=== PATIENT | female | born 1945 | race Caucasian/White ===

== ENCOUNTER → 2017-01-05 | Outpatient (CLI) | payer MEDICARE, OTHER ==
[2014-08-17 22:01] VITALS: BP 109/57
[~2017-01-05] MED LIST: CALC-67 PO; CIDE300T PO; CRESTOR20 MG PO; CRESTOR5 MG PO; CYCL10TA2 PO; DEXL60CA PO; FERR-26 PO; HYDR-2666 PO; LEVO5TAB2 PO; LORA10TA3 PO; MECL12.52 PO; MELO15TA6 PO; METO25TA9 PO; METO50TA10 PO; MULT-658 PO; OMEG500C3 PO; SPIR25TA PO; TRAM50TA PO
[2017-01-05 09:26] LABS: BASO # 0.1 x10^3/uL (0.0-0.2); BASO % 1 % (0-3); EOS % 3 % (0-3); HEMATOCRIT 38.9 % (36.0-47.0); HEMOGLOBIN 13.1 g/dL (12.0-15.5); LYMPH # 1.8 x10^3/uL (1.0-4.8); LYMPH % 25 % (24-48); MEAN CORPUSCULAR HEMOGLOBIN 30 pg (25-35); MEAN CORPUSCULAR HGB CONC 34 g/dL (31-37); MEAN CORPUSCULAR VOLUME 88 fL (79-100); MONO % 10 % (0-9); NEUT % 62 % (31-73); PLATELET COUNT 250 x10^3/uL (140-400); RED BLOOD COUNT 4.41 x10^6/uL (3.50-5.40); RED CELL DISTRIBUTION WIDTH 14.3 % (11.5-14.5); WHITE BLOOD COUNT 7.1 x10^3/uL (4.0-11.0)
[2017-01-05 09:35] LABS: PROTHROMBIN TIME PATIENT 12.8 SEC (11.7-14.0)
[2017-01-05 09:50] LABS: ALBUMIN 4.1 g/dL (3.4-5.0); CREATININE 1.4 mg/dL (0.6-1.0); GFR 37.2; POTASSIUM 4.1 mmol/L (3.5-5.1)
[2017-01-05 10:32] LABS: BILIRUBIN,URINE NEGATIVE (NEG); GLUCOSE,URINE NEGATIVE (NEG); NITRITE,URINE NEGATIVE (NEG); PH,URINE 5.5; PROTEIN,URINE NEGATIVE (NEG-TRACE); UROBILINOGEN,URINE 0.2 mg/dL (0.2 mg/dL)
[2017-01-05 10:46] LABS: BACTERIA,URINE FEW /HPF (0-FEW); RBC,URINE OCC /HPF (0-2); SQUAMOUS EPITHELIAL CELL,UR FEW /LPF; WBC,URINE OCC /HPF (0-4)
--- NOTE | 2017-01-05 12:14 | EKG ---
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
--- NOTE | 2017-01-05 15:11 | RAD ---
Chest, 2 views, 01/05/2017: History: Preop evaluation for knee surgery There is a severe thoracolumbar scoliosis. The heart size and pulmonary vascularity are normal. No pulmonary infiltrates are seen. There is no evidence of pleural fluid. Surgical implants are noted in the lumbar spine. IMPRESSION: 1. Severe scoliosis. 2. No acute cardiopulmonary abnormality is detected.
== END | disposition home or self-care (01) ==
LOC: SURGPAT 14:30
PROVIDERS: ATTEND Orthopaedic Surgery
DX: Z01.818 Encounter for other preprocedural examination (principal); M41.85 Other forms of scoliosis, thoracolumbar region; I10 Essential (primary) hypertension
CPT/HCPCS: 36415; 71020; 80048; 81001; 82040; 85027; 85610; 85651; 85730; 87641; 93005

== ENCOUNTER 2017-01-27 10:04 | Inpatient (IN) | payer MEDICARE, OTHER ==
--- NOTE | 2017-01-26 17:02 | PDOC1 ---
History and Physical Date of Admission Date of Admission DATE: 01/27/17 Identification/Chief Complaint Chief Complaint right knee osteoarthritis pain Source Source: Chart review History of Present Illness History of Present Illness Elizabeth is here today with her for a recheck on her right knee after an 80mg depomedrol injection done in the office on 10/30/2016 and referral for formal physical therapy. She states that her knee is still doing good and she doesn't feel like she needs another injection today. She denies any medication changes since her last office visit. She is quite a bit stronger than she was in her gait is improved however. She still has a very abnormal gait and uses a walker. Her therapist feels like she could wear to walk normally if she had a knee replacement. Currently the right knee instability seems to be the main problem, and despite raising her knee still feels unstable like it wants to hyperextend and go into valgus. Her says she has "lost her confidence to walk". She uses a walker most of the time, sometimes not in the house for she we'll just hold on to the old. We talked for a long time about the risks, benefits of the replacement surgery. She also has had back surgery, with a lumbar fusion and did have a dropfoot on the right side for some time but feels like that has resolved. She needed an AFO brace previously, but no longer uses it. Despite her pathologic gait, the therapist could not find any distinct motor weakness, and thought perhaps she has some hip issues. She also reports sensitivity to many metals, and has difficulty wearing certain jewelry, unless it is "pure" silver or gold. She reports nickel sensitivity. Her back has been stable, and she gets yearly rechecks with x-rays for Dr. Lorenzana. She did have epidural steroid injection a month ago and recent lumbar spine MRI. Past Medical History Cardiovascular: No pertinent hx, HTN, Hyperlipidemia Pulmonary: No pertinent hx GI: Diverticulosis, GERD, Other Heme/Onc: No pertinent hx Hepatobiliary: No pertinent hx Psych: No pertinent hx, Anxiety Infectious disease: No pertinent hx Renal/: No pertinent hx Endocrine: No pertinent hx Past Surgical History Past Surgical History back fusion surgery (Dr. Bellamy) - 09/2010 Past Surgical History: Cholecystectomy Family History Family History: Cancer, Heart Disease, Hypertension, Stroke Social History Smoke: No ALCOHOL: none Drugs: None Current Medications Current Medications Current Medications Ondansetron HCl (Zofran) 4 mg PRN Q6HRS PRN IV Nausea; Start 01/27/17 at 07:00 ; Stop 01/27/17 at 18:00 Fentanyl Citrate (Fentanyl 2ml Vial) 25 mcg PRN Q5MIN PRN IV MILD PAIN; Start 01/27/17 at 07:00; Stop 01/27/17 at 18:00 Fentanyl Citrate (Fentanyl 2ml Vial) 50 mcg PRN Q5MIN PRN IV MODERATE PAIN; Start 01/27/17 at 07:00; Stop 01/27/17 at 18:00 Morphine Sulfate 1 mg 1 mg PRN Q10MIN PRN IV SEVERE PAIN; Start 01/27/17 at 07: 00; Stop 01/27/17 at 18:00 Lactated Ringer's (Iv Lactated Ringers) 1,000 ml @ 30 mls/hr Q24H IV ; Start at 07:00; Stop 01/27/17 at 18:59 Lidocaine HCl 2 ml 1X PRN PRN ID IV START; Start 01/27/17 at 07:00; Stop at 18:00 Hydromorphone HCl (Dilaudid) 0.5 mg PRN Q10MIN PRN IV SEVERE PAIN, Second choice; Start 01/27/17 at 07:00; Stop 01/27/17 at 18:00 Prochlorperazine Edisylate 5 mg 5 mg PACU PRN PRN IV NAUSEA; Start 01/27/17 at 07:00; Stop 01/27/17 at 18:00 Morphine Sulfate/ Ketorolac Tromethamine/ Ropivacaine/ Epinephrine HCl/ Sodium Chloride (Morphine 5mg Syringe/Toradol/ Naropin 0.5%/ Adrenalin/Iv Sodium Chloride 0.9% 100ml) 100.5 ml @ 100.5 mls/ hr 1X PERIOP ONCE INT ART ; Start 01/27/17 at 06:00; Stop 01/27/17 at 06:59 Active Scripts Active Reported Tramadol Hcl 50 Mg Tablet 50 Mg PO Q6H PRN Dexilant (Dexlansoprazole) 60 Mg Cap.dr.mp 60 Mg PO DAILY Crestor (Rosuvastatin Calcium) 5 Mg Tablet 0.5 Tab PO QMWF Metoprolol Succinate 50 Mg Tab.er.24h 75 Mg PO DAILY Levocetirizine Dihydrochloride 5 Mg Tablet 1 Tab PO DAILY Ferrous Sulfate 325 Mg Tablet 1 Tab PO DAILY Hydrocodone-Apap 5-325 (Hydrocodone Bit/Acetaminophen) 1 Each Tablet 1 Tab PO PRN Q6HRS PRN Meclizine Hcl 12.5 Mg Tablet 12.5 Mg PO Apple Cider Vinegar (Cider Vinegar) 300 Mg Tablet 300 Mg PO DAILY Cyclobenzaprine Hcl 10 Mg Tablet 10 Mg PO DAILY Loratadine 10 Mg Tablet 10 Mg PO DAILY Mobic (Meloxicam) 15 Mg Tablet 15 Mg PO DAILY Aldactone (Spironolactone) 25 Mg Tablet 25 Mg PO DAILY Fish Oil (Lena-3 Fatty Acids) 500 Mg Capsule 1,000 Mg PO DAILY Centrum Silver Tablet (Multivits-Min/Fa/Lycopene/Lut) 1 Each Tablet 1 Each PO DAILY Allergies Allergies: Coded Allergies: adhesive tape (Verified Allergy, Intermediate, Rash, 01/02/17) amoxicillin (Verified Allergy, Intermediate, Unknown, 01/02/17) Physical Exam General: Alert, Oriented X3, Cooperative, No acute distress HEENT: Atraumatic, EOMI Lungs: Normal air movement Heart: RRR Abdomen: Soft Extremities: No clubbing, No cyanosis, Normal pulses, Other (The RIGHT knee shows pathologic walker based gait despite using a hinged knee brace. She walks with the hyperextended and valgus until it reaches a natural endpoint, and then puts her weight on it. She still walks as if she has a drop foot, however, when I check her motor strength in the lower extremities, the strengths seemed normal and symmetric. I checked the motor strength in the right lower extremity including: great toe extension, foot dorsiflexion, foot plantar flexion, foot inversion, foot eversion, leg extension at the knee, flexion at the knee, hip flexion, hip extension, hip abduction, hip abduction, hip internal rotation, and hip external rotation. The strength on all of these seem normal 5/5. It is my impression that her abnormal gait is partly learned behavior from her prior drop foot, and partly related to the knee instability. The knee is unstable to valgus stress and to varus stress. There is valgus alignment. No masses. No detectable effusion. Tenderness on the joint lines. Range of motion is hyperextension 10 degrees to flexion 115 degrees. There is crepitus with range of motion, and pain at the extremes of motion. The skin is normal with no scars , rashes, lesions or ulcers. Light touch sensation is intact. No edema and no varicosities. Dorsalis pedis pulse is intact and capillary refill is normal. The LEFT knee shows mildly antalgic gait and hinged knee brace. There is valgus alignment. No masses. No detectable effusion. Tenderness on the joint lines. Range of motion is 0-115 degrees. There is crepitus with range of motion, and pain at the extremes of motion. The knee is stable to varus and valgus stress without subluxation or laxity. Muscle strength is normal (5/5) for quadriceps and hamstrings, and muscle tone is normal. The skin is normal with no scars, rashes, lesions or ulcers. Light touch sensation is intact. No edema and no varicosities. Dorsalis pedis pulse is intact and capillary refill is normal.) Skin: No rashes, No breakdown Neuro: Normal speech, Sensation intact Psych/Mental Status: Mental status NL, Mood NL Images Images IMAGING REPORT Joint survey, hips knees and ankles Clinical information: Preoperative for total knee arthroplasty Comparison: None. Findings Bones: [The angle between the right hip-ankle mechanical axis and the femoral shaft is 5. The mechanical axis crosses lateral to the center of the right knee, indicating valgus alignment. Due to the patient movement and stitching technique, left femur and tibiofemoral measurements are not possible to assess. Joints: There is narrowing of the right knee joint laterally with [id number] changes. The left knee joint shows mild to moderate degenerative changes. The hips and ankles show minimal degenerative changes. Soft tissue: Normal. Impression: Valgus alignment of the right knee. The difference between the mechanical axis and femoral shaft anatomic axis is 5 on the right. Dictated and Signed Using Voice Recognition Software Nathan Villegas MD VTE Prophylaxis Ordered VTE Prophylaxis Devices: Yes VTE Pharmacological Prophylaxi: Yes Assessment/Plan Assessment/Plan Dr. Villegas had a long discussion about her knee, her longevity, and her gait. Her mom lived until age 90, grandmother until 95. She has uncles who lived until 100 , and 98. Her father young of cardiac disease and diabetes. Her primary physician is Dr. Hennessy. She does not have a hip hop performers. She has had right knee problems since the 1970's, but they got much worse after the recent fall. She no longer is able to do day-to-day activities without using the walker brace and without significant immobility. We talked about the natural history of her knee disease, and that she will likely end up in a wheelchair without intervention. She may live for 20 or more years. We talked about the risks and benefits of total knee arthroplasty. She would need revision components. Due to the severe instability. I would plan a stem on the tibia, likely a stem on the femur, Oxinium femur due to the medical sensitivity, and stabilized tibiofemoral articulation such as a constrained condylar implant. We discussed risks such as infection, possible need for amputation, need for revision, rather significant risks in detail. She has a friend that had bilateral total knee arthroplasty. At [facility] and required revision for infection. We discussed the potential risks of infection, neurovascular injury, bleeding, blood clots, need for revision surgery, or other potential surgical or anesthetic complications. All of her questions about surgery were answered and she desires to proceed. She denies prior blood clots and will use aspirin postoperatively for DVT prophylaxis. DEVIN MAK Jan 26, 2017 17:02
[~2017-01-27] VITALS: Ht 157.5 cm; Wt 74.8 kg
[~2017-01-27 10:04] MED LIST changes: +CLINDAMYCIN 600MG PREMIX 50 ML IV PRN; +FENTANYL PF 100 MCG/2 ML VIAL. IV PRN; +HYDROCODONE/APAP 7.5/325MG TABLET. PO PRN; +HYDROMORPHONE 2 MG/ML VIAL. IV PRN; +LIDOCAINE 1% 1 ML SYRINGE. ID PRN; +MORPHINE SULFATE 5 MG, KETOROLAC TROMETHAMINE 30 MG, ROPIVacaine 0.5% PF 60 ML, EPINEPH... INT ART ONE; +ONDANSETRON PF 4 MG/2 ML VIAL. IV PRN; +PROCHLORPERAZINE 10 MG/2 ML VIAL. IV PRN; +TOBRAMYCIN POWDER 1.2 GM VIAL. ONE; +TRANEXAMIC ACID 1,000 MG in IV NS 50ML -- 1ST BAG INJ ONE; +TRANEXAMIC ACID 1,000 MG in IV NS 50ML -- 2ND BAG INJ ONE; +VANCOMYCIN 1 GM VIAL. ONE
[2017-01-27] MEDS ORDERED: ACETAMINOPHEN 500 MG TABLET PO ONE ×2 (11:14→11:30)
[2017-01-27] MEDS: IV RINGERS,LACTATED 1000ML 1,000 ML IV SCH ×2 (11:20→11:24)
[2017-01-27] MEDS ORDERED: LIDOCAINE 2% 100 MG/5 ML DISP.SYRIN. ONE (11:27)
[2017-01-27] MEDS ORDERED: FAMOTIDINE 20 MG/2 ML VIAL ONE (11:28)
[2017-01-27] MEDS ORDERED: PROPOFOL 20 ML IV ONE (11:28)
[2017-01-27] MEDS ORDERED: ONDANSETRON PF 4 MG/2 ML VIAL. ONE (11:28)
[2017-01-27] MEDS ORDERED: DEXAMETHASONE SOD PHOS 20 MG/5 ML VIAL. ONE (11:28)
[2017-01-27] MEDS ORDERED: FENTANYL PF 100 MCG/2 ML VIAL. ONE (11:29)
[2017-01-27] MEDS ORDERED: ROCURONIUM 50 MG/5 ML VIAL. ONE (11:29)
[2017-01-27] MEDS ORDERED: MIDAZOLAM HCL 2 MG/2 ML VIAL. ONE (11:29)
[2017-01-27] MEDS ORDERED: PHENYLEPHRINE in 0.9% NACL PF 1 MG/10 ML DISP.SYRIN. IV ONE (12:49)
[2017-01-27] MEDS ORDERED: VASOPRESSIN 20 UNIT/ML VIAL. ONE (12:59)
[2017-01-27] MEDS ORDERED: 0.9 % SODIUM CHLORIDE 50 ML VIAL. IJ ONE (12:59)
[2017-01-27] MEDS ORDERED: MORPHINE SULFATE 5 MG, ROPIVacaine 0.5% PF 60 ML, EPINEPHRINE 0.5 MG in IV NORMAL SALIN... INT ART ONE (13:30)
[2017-01-27] MEDS ORDERED: GLYCOPYRROLATE 1 MG/5 ML VIAL. ONE (14:04)
[2017-01-27] MEDS ORDERED: NEOSTIGMINE METHYLSULFATE 5 MG/5 ML SYRINGE. ONE (14:04)
[2017-01-27] MEDS ORDERED: DESFLURANE > 120 MINUTES IH ONE (14:17)
--- NOTE | 2017-01-27 14:47 | PDOC4 ---
Operative Note Operative Note Date of Procedure: January 27, 2017 Pre-Op Diagnosis: Osteoarthritis right knee Post-Op Diagnosis: Osteoarthritis right knee Procedure: right total knee arthroplasty Surgeon: Maryellen Villegas MD Time Broker: Francia Sanchez PA-C Anesthesia: General EBL: 100 mL Specimens Obtained: right knee bone and soft tissue Complications: none Implant Company: [employer] Drains: Hemovac plus pain catheter Tourniquet time: 51 minutes Indications for Procedure: Arthritis pain unrelieved by nonoperative management. Findings: Severe osteoarthritis with bone on bone contact laterally Implants used: Size 3 right bicruciate stabilized Journey II BCS cobalt chrome femoral component, size 3 right Journey nonporous tibial baseplate, size 3-4 12 mm right Journey II BCS XLPE articular insert, 35 mm oval Monica II resurfacing patellar component Procedure in Detail: The patient was identified in the preoperative holding area, and the correct right extremity was marked by me. The patient was taken to the operating room where the patient was anesthetized by the Department of Anesthesia. Preoperative antibiotics were given intravenously. Tranexamic acid 1 g was given intravenously for intraoperative hemostasis. A "time-out" procedure was performed. The patient was positioned supine on the operative table with a tourniquet on the upper thigh. The limb was thoroughly prepped and draped in sterile fashion. An impervious stockinet and adhesive drape were used such that the skin was entirely covered. An Perez leg garcia was used. The operating team wore personal exhaust-ventilated hoods. The tourniquet was inflated to 350 mm Hg. A midline skin incision was made with a scalpel using the patella and tibial tubercle as landmarks. Electrocautery was used for hemostasis. My child welfare assistant used rake retractors. A medial parapatellar arthrotomy incision was used with extension into the distal quadriceps tendon. The patella was retracted laterally and Hohmann retractors were now used by my child welfare assistant. Excess synovium, the menisci, and the cruciate ligaments were resected sharply. The patella was assessed and excess synovium and osteophytes around the patellar articulation were removed. The patella was measured with a caliper, cut freehand with a saw using caliper measurements, sized, and then drilled for an oval three-pegged patella component. Periarticular injection was used in the suprapatellar pouch and distal quadriceps muscle. Whitesides's line was assessed on the femur. An intra-medullary 5 degree cutting guide was pinned to the femur, and a distal femoral cut was made with an oscillating saw. An additional 4 mm resection was used due to the deep femoral sulcus, and deficient femoral condyle.My child welfare assistant held Hohmann retractors and an [employer] retractor to protect the medial and lateral collateral ligaments, the patellar tendon, the skin and the other soft tissues. An anterior referencing guide was applied with external rotation of 5 to match Whitesides line. A 5-in-1 Journey II cutting guide was then applied and pinned to the femur. The posterior, anterior, and all chamfer cuts were made with the oscillating saw. An extramedullary guide was pinned to the tibia and rotational alignment and the planned resection thickness assessed. An external alignment kishore was used to verify the planned cut in the varus-valgus plane and regarding posterior slope referencing the tibial tubercle, the tibial shaft, the ankle joint, and the second metatarsal. The upper tibia was cut made with an oscillating saw. My child welfare assistant held Hohmann retractors and a posterior cruciate ligament retractor to protect the medial and lateral collateral ligaments, the patellar tendon, the skin, the peroneal nerve and the other soft tissues. The upper tibia was sized with a trial baseplate. The posterior compartment was cleared of osteophytes and loose bodies, and posterior capsule released. Maxine-articular injection was used in the posterior compartment. The box cut for a posterior stabilized component was made. A preliminary reduction was performed with a trial femur, trial tibial baseplate and trial polyethylene. Soft-tissue balancing was now performed, and extension and rotation of the alignments was checked using a guide kishore in the tibial trial and a guide pin in the femur. No additional releases were required. The stability was assessed using different thicknesses of tibial articular surface to find satisfactory stability and good range of motion. The rotation of the tibial component was marked on the upper tibia. Final trial reduction was now performed verifying patella tracking and tibiofemoral stability and alignment. The tibia preparation was completed with a drill, saw, and fin punch at the previously noted rotation. The final implants were verified and opened. Outer gloves were changed by the operating team. The bone cuts were washed thoroughly with the [employer] InterPulse device and dried. Two packages of [place] bone cement were mixed in powdered form with 1 gm of Vancomycin and 1.2 g tobramycin, then vacuum-mixed with the monomer, and placed into a cement gun. The cut surfaces of the bone were thoroughly dried with Singer-tip suction and with laparotomy sponges for cement interdigitation. The final components were cemented into place. The knee was kept at full extension while the cement hardened, and excess cement was removed. Tranexamic acid 1 g was redosed intravenously for additional intraoperative hemostasis. A final periarticular injection was used for pain relief. The tourniquet was released, and electrocautery was used for hemostasis. A final check of [id number] and stability was made, and the polyethylene implant final size was chosen. The polyethylene implant was secured to the tibial baseplate, and the knee was reduced a final time. Thorough irrigation was used. Hemovac and pain catheter were used.The arthrotomy was closed with interrupted [id number] #1 PDS suture. The capsulotomy was then run with #1 PDS. The subcutaneous tissues were closed with #2-0 Vicryl by my child welfare assistant. The skin was reapproximated with era by my child welfare assistant. A bulky sterile dressing was applied. Needle and sponge counts were correct. MARYELLEN VILLEGAS MD Jan 27, 2017 14:47
[2017-01-27] MEDS ORDERED: FENTANYL PF 100 MCG/2 ML VIAL. IV PRN (15:00)
[2017-01-27] MEDS ORDERED: DEXTROSE 50% 25 GM / 50ML DISP.SYRIN. IV PRN (15:00)
[2017-01-27] MEDS ORDERED: METOCLOPRAMIDE HCL 10 MG/2 ML VIAL. IV PRN (15:00)
[2017-01-27] MEDS ORDERED: MORPHINE SULFATE 2 MG/ML DISP.SYRIN. IV PRN (15:00)
[2017-01-27] MEDS ORDERED: PROCHLORPERAZINE 5 MG TABLET. PO PRN (15:00)
[2017-01-27] MEDS ORDERED: CALCIUM CARBONATE 500 MG TAB.CHEW PO PRN (15:00)
[2017-01-27] MEDS ORDERED: TRAMADOL 50 MG TABLET. PO PRN ×2 (15:00)
[2017-01-27] MEDS ORDERED: MORPHINE SULFATE 10 MG/ML VIAL. IV PRN (15:00)
[2017-01-27] MEDS ORDERED: ZOLPIDEM 5 MG TABLET. PO PRN (15:00)
[2017-01-27] MEDS ORDERED: ACETAMINOPHEN 325 MG TABLET. PO PRN (15:00)
[2017-01-27] MEDS ORDERED: 0.9 % SODIUM CHLORIDE 10 ML DISP.SYRIN. IV PRN (15:00)
[2017-01-27] MEDS ORDERED: DIPHENHYDRAMINE 50 MG/ML VIAL IV PRN (15:00)
[2017-01-27] MEDS ORDERED: HYDROCODONE/APAP 7.5/325MG TABLET. PO PRN (15:00)
[2017-01-27] MEDS ORDERED: MORPHINE SULFATE 4 MG/ML DISP.SYRIN. IV PRN ×2 (15:00)
[2017-01-27] MEDS ORDERED: PROCHLORPERAZINE 10 MG/2 ML VIAL. IV PRN (15:00)
[2017-01-27] MEDS ORDERED: ALBUTEROL SULFATE 2.5 MG/3 ML NEBU. ONE (15:01)
[2017-01-27] MEDS: MORPHINE SULFATE 2 MG/ML DISP.SYRIN. IV PRN ×2 (15:25→15:35)
--- NOTE | 2017-01-27 15:35 | RAD ---
Portable right knee, 2 views, 01/27/2017: History: Postop evaluation A total knee prosthesis is in place in satisfactory position. Surgical skin clips and a drain overlie the operative site anteriorly. There is no evidence of a retained surgical instrument, needle or radiopaque sponge on these 2 views. IMPRESSION: No significant postoperative abnormality is detected.
[2017-01-27] MEDS ORDERED: PHENYLEPHRINE 10 MG/ML VIAL. ONE (15:37)
[2017-01-27] MEDS ORDERED: ATROPINE 0.5 MG/5 ML DISP.SYRIN. ONE (15:40)
[2017-01-27] MEDS ORDERED: ALBUTEROL SULFATE 2.5 MG/3 ML NEBU. NEB ONE (16:00)
[2017-01-27] MEDS: FERROUS SULFATE 325 MG TABLET PO SCH (17:00)
[2017-01-27 17:30] VITALS: BP 112/77
[2017-01-27 18:00] VITALS: BP 99/72
[2017-01-27] MEDS: IV DEXTROSE 5 %-0.45 % NACL 1,000 ML IV SCH (18:04)
[2017-01-27 18:30] VITALS: BP 107/60
[2017-01-27] MEDS: CLINDAMYCIN 600MG PREMIX 50 ML IV SCH (19:00)
[2017-01-27 19:05] VITALS: BP 93/57
[2017-01-27] MEDS: HYDROCODONE/APAP 10/325 TABLET. PO PRN ×2 (20:08→23:55)
[2017-01-27] MEDS: ASPIRIN ENTERIC COATED 325 MG TABLET.DR. PO SCH (20:51)
[2017-01-27] MEDS: BUPIVACAINE MPF 0.25% 20 ML, EPINEPHRINE 0.5 MG in TOTAL VOLUME SYRINGE 21.5 ML INT ART SCH (20:51)
[2017-01-27 22:49] VITALS: BP 105/66
[2017-01-28] MEDS: MONTELUKAST SODIUM 10 MG TABLET. PO SCH ×2 (00:14→21:06)
[2017-01-28] MEDS: CETIRIZINE HCL 10 MG TABLET PO SCH ×2 (00:14→08:30)
[2017-01-28] MEDS: FLUTICASONE 50MCG/NASAL SPRAY 16GM BOTTLE. NS SCH ×2 (00:14→09:49)
[2017-01-28] MEDS: IV DEXTROSE 5 %-0.45 % NACL 1,000 ML IV SCH ×4 (00:53→21:10)
[2017-01-28 03:07] VITALS: BP 100/62
[2017-01-28] MEDS: HYDROCODONE/APAP 10/325 TABLET. PO PRN (04:39)
[2017-01-28] MEDS: BUPIVACAINE MPF 0.25% 20 ML, EPINEPHRINE 0.5 MG in TOTAL VOLUME SYRINGE 21.5 ML INT ART SCH (05:39)
[2017-01-28] MEDS ORDERED: MAGNESIUM HYDROXIDE 2,400 MG/30 ML ORAL.SUSP. PO PRN (06:00)
[2017-01-28 06:50] LABS: HEMATOCRIT 29.2 % (36.0-47.0); HEMOGLOBIN 9.6 g/dL (12.0-15.5); RED BLOOD COUNT 3.23 x10^6/uL (3.50-5.40); RED CELL DISTRIBUTION WIDTH 13.9 % (11.5-14.5); WHITE BLOOD COUNT 10.9 x10^3/uL (4.0-11.0)
[2017-01-28] MEDS: CLINDAMYCIN 600MG PREMIX 50 ML IV SCH ×2 (06:52→07:34)
[2017-01-28] MEDS: FENTANYL PF 100 MCG/2 ML VIAL. IV PRN ×2 (06:55→21:51)
[2017-01-28] MEDS: PANTOPRAZOLE 40 MG TABLET. PO SCH (07:32)
[2017-01-28 07:34] VITALS: BP 87/52
[2017-01-28] MEDS: MULTIVITAMIN with MINERAL TABLET. PO SCH (08:30)
[2017-01-28] MEDS: SENNOSIDES/DOCUSATE 8.6/50MG TABLET. PO SCH (08:30)
[2017-01-28] MEDS: MECLIZINE HCL 12.5 MG TABLET. PO SCH (08:30)
[2017-01-28] MEDS: CYCLOBENZAPRINE 10 MG TABLET. PO SCH (08:30)
[2017-01-28] MEDS: ASPIRIN ENTERIC COATED 325 MG TABLET.DR. PO SCH ×2 (08:30→21:06)
[2017-01-28] MEDS: FERROUS SULFATE 325 MG TABLET PO SCH ×2 (08:30→17:09)
[2017-01-28] MEDS: METOPROLOL SUCC 24HR ER 25 MG TAB.ER.24H. PO SCH (09:00)
[2017-01-28] MEDS: SPIRONOLACTONE 25 MG TABLET PO SCH (09:00)
[2017-01-28] MEDS ORDERED: LEVOCETIRIZINE DIHYDROCHLORIDE PO SCH (09:00)
[2017-01-28] MEDS: OXYCODONE/APAP 5/325 TABLET. PO PRN ×3 (09:48→18:31)
--- NOTE | 2017-01-28 10:02 | PDOC ---
PROGRESS NOTES Subjective Subjective Doing well today. Pain is controlled. Objective Vital Signs Vital Signs Date Time Temp Pulse Resp B/P Pulse Ox O2 Delivery O2 Flow Rate FiO2 01/28/17 09:48 20 Room Air 01/28/17 09:00 78 95/50 01/28/17 07:34 98.4 96 98.4 01/27/17 22:49 2.0 Physical Exam Dressing dry. Pain catheter and Hemovac in place. Calf soft and nontender, with a negative Jose Manuel's sign. Good dorsiflexion and plantarflexion of the foot with no evidence of neurovascular injury or DVT. Labs Laboratory Tests Test 01/28/17 05:55 White Blood Count 10.9x10^3/uL (4.0-11.0) Red Blood Count 3.23x10^6/uL (3.50-5.40) Hemoglobin 9.6g/dL (12.0-15.5) Hematocrit 29.2% (36.0-47.0) Mean Corpuscular Volume 90fL (79-100) Mean Corpuscular Hemoglobin 30pg (25-35) Mean Corpuscular Hemoglobin Concent 33g/dL (31-37) Red Cell Distribution Width 13.9% (11.5-14.5) Platelet Count 178x10^3/uL (140-400) Laboratory Tests Test 01/28/17 05:55 White Blood Count 10.9x10^3/uL (4.0-11.0) Red Blood Count 3.23x10^6/uL (3.50-5.40) Hemoglobin 9.6g/dL (12.0-15.5) Hematocrit 29.2% (36.0-47.0) Mean Corpuscular Volume 90fL (79-100) Mean Corpuscular Hemoglobin 30pg (25-35) Mean Corpuscular Hemoglobin Concent 33g/dL (31-37) Red Cell Distribution Width 13.9% (11.5-14.5) Platelet Count 178x10^3/uL (140-400) Imaging Postoperative x-rays reviewed by me, showing satisfactory total knee replacement , with no apparent complications. Assessment Assessment POD #1 right TKA Problems: Plan Plan of Care Continue POC including DVT prophylaxis and physical therapy. Plan for discharge to home with home health PT Thursday afternoon. DEVIN MAK Jan 28, 2017 10:02
[2017-01-28 11:15] VITALS: BP 96/57
[2017-01-28 15:00] VITALS: BP 109/69
[2017-01-28] MEDS ORDERED: BISACODYL 10 MG SUPP.RECT PR PRN (16:00)
[2017-01-28 18:23] VITALS: BP 114/73
[2017-01-28] MEDS: ATORVASTATIN CALCIUM 10 MG TABLET. PO SCH ×2 (21:00→21:06)
[2017-01-29 01:21] VITALS: BP 125/76
[2017-01-29] MEDS: OXYCODONE/APAP 7.5/325 TABLET. PO PRN ×5 (01:21→20:37)
[2017-01-29 05:30] VITALS: BP 97/58
[2017-01-29 06:29] LABS: HEMATOCRIT 28.1 % (36.0-47.0); HEMOGLOBIN 9.4 g/dL (12.0-15.5); RED BLOOD COUNT 3.14 x10^6/uL (3.50-5.40); RED CELL DISTRIBUTION WIDTH 13.6 % (11.5-14.5); WHITE BLOOD COUNT 8.5 x10^3/uL (4.0-11.0)
[2017-01-29] MEDS: FERROUS SULFATE 325 MG TABLET PO SCH ×2 (08:24→17:22)
[2017-01-29] MEDS: SENNOSIDES/DOCUSATE 8.6/50MG TABLET. PO SCH (08:24)
[2017-01-29] MEDS: OXYCODONE/APAP 5/325 TABLET. PO PRN (08:24)
[2017-01-29] MEDS: CYCLOBENZAPRINE 10 MG TABLET. PO SCH (08:24)
[2017-01-29] MEDS: FLUTICASONE 50MCG/NASAL SPRAY 16GM BOTTLE. NS SCH (08:25)
[2017-01-29] MEDS: PANTOPRAZOLE 40 MG TABLET. PO SCH (08:25)
[2017-01-29] MEDS: ASPIRIN ENTERIC COATED 325 MG TABLET.DR. PO SCH ×2 (08:25→20:36)
[2017-01-29] MEDS: MECLIZINE HCL 12.5 MG TABLET. PO SCH (08:25)
[2017-01-29] MEDS: MULTIVITAMIN with MINERAL TABLET. PO SCH (08:25)
[2017-01-29] MEDS: CETIRIZINE HCL 10 MG TABLET PO SCH (08:25)
--- NOTE | 2017-01-29 12:45 | PDOC ---
PROGRESS NOTES Subjective Subjective Some pain. Difficulty getting up to chair alone. Objective Vital Signs Vital Signs Date Time Temp Pulse Resp B/P Pulse Ox O2 Delivery O2 Flow Rate FiO2 01/29/17 08:24 16 01/29/17 08:00 Room Air 01/29/17 05:30 100.4 112 97/58 97 100.4 01/27/17 22:49 2.0 Physical Exam Dressing dry. Trace warmth, no erythema. Calf soft and NT. Distal NVI at foot and ankle. Calf soft and NT. Labs Laboratory Tests Test 01/28/17 05:55 01/29/17 05:30 White Blood Count 10.9x10^3/uL (4.0-11.0) 8.5x10^3/uL (4.0-11.0) Red Blood Count 3.23x10^6/uL (3.50-5.40) 3.14x10^6/uL (3.50-5.40) Hemoglobin 9.6g/dL (12.0-15.5) 9.4g/dL (12.0-15.5) Hematocrit 29.2% (36.0-47.0) 28.1% (36.0-47.0) Mean Corpuscular Volume 90fL (79-100) 90fL (79-100) Mean Corpuscular Hemoglobin 30pg (25-35) 30pg (25-35) Mean Corpuscular Hemoglobin Concent 33g/dL (31-37) 33g/dL (31-37) Red Cell Distribution Width 13.9% (11.5-14.5) 13.6% (11.5-14.5) Platelet Count 178x10^3/uL (140-400) 157x10^3/uL (140-400) Laboratory Tests Test 01/29/17 05:30 White Blood Count 8.5x10^3/uL (4.0-11.0) Red Blood Count 3.14x10^6/uL (3.50-5.40) Hemoglobin 9.4g/dL (12.0-15.5) Hematocrit 28.1% (36.0-47.0) Mean Corpuscular Volume 90fL (79-100) Mean Corpuscular Hemoglobin 30pg (25-35) Mean Corpuscular Hemoglobin Concent 33g/dL (31-37) Red Cell Distribution Width 13.6% (11.5-14.5) Platelet Count 157x10^3/uL (140-400) Imaging Postop x-rays reviewed by me show satisfactory TKA without apparent complications. Assessment Assessment POD#2 TKA Problems: Plan Plan of Care Continue PT. Discharge planning probably for home tomorrow. Continue DVT prophylaxis. MARYELLEN SUTTON MD Jan 29, 2017 12:45
[2017-01-29 12:52] VITALS: BP 111/61
[2017-01-29] MEDS: METOPROLOL SUCC 24HR ER 25 MG TAB.ER.24H. PO SCH (12:54)
[2017-01-29] MEDS: SPIRONOLACTONE 25 MG TABLET PO SCH (17:24)
[2017-01-29 17:48] VITALS: BP 92/56
[2017-01-29] MEDS: MONTELUKAST SODIUM 10 MG TABLET. PO SCH (20:36)
[2017-01-29 23:30] VITALS: BP 115/79
[2017-01-30 04:48] LABS: HEMATOCRIT 30.8 % (36.0-47.0); HEMOGLOBIN 10.3 g/dL (12.0-15.5)
[2017-01-30 05:19] VITALS: BP 106/67
[2017-01-30] MEDS: OXYCODONE/APAP 7.5/325 TABLET. PO PRN ×3 (05:27→15:08)
[2017-01-30] MEDS ORDERED: CETIRIZINE HCL 10 MG TABLET. ONE (08:08)
[2017-01-30] MEDS: ASPIRIN ENTERIC COATED 325 MG TABLET.DR. PO SCH (08:23)
[2017-01-30] MEDS: MECLIZINE HCL 12.5 MG TABLET. PO SCH (08:23)
[2017-01-30] MEDS: PANTOPRAZOLE 40 MG TABLET. PO SCH (08:23)
[2017-01-30] MEDS: SENNOSIDES/DOCUSATE 8.6/50MG TABLET. PO SCH ×2 (08:26→11:40)
[2017-01-30] MEDS: FERROUS SULFATE 325 MG TABLET PO SCH ×2 (08:26→11:40)
[2017-01-30] MEDS: CYCLOBENZAPRINE 10 MG TABLET. PO SCH ×2 (08:26→11:40)
[2017-01-30] MEDS: MULTIVITAMIN with MINERAL TABLET. PO SCH ×2 (08:26→11:40)
[2017-01-30] MEDS: FLUTICASONE 50MCG/NASAL SPRAY 16GM BOTTLE. NS SCH (08:27)
[2017-01-30] MEDS: METOPROLOL SUCC 24HR ER 25 MG TAB.ER.24H. PO SCH (08:27)
[2017-01-30 08:29] VITALS: BP 108/68
[2017-01-30] MEDS: SPIRONOLACTONE 25 MG TABLET PO SCH (09:00)
[2017-01-30] MEDS: CETIRIZINE HCL 10 MG TABLET PO SCH (09:00)
[2017-01-30] MEDS ORDERED: ASPI325T11 PO (10:49)
[2017-01-30 11:35] VITALS: BP 93/54
[2017-01-30] MEDS: OXYCODONE/APAP 5/325 TABLET. PO PRN (12:33)
[2017-01-30 14:45] VITALS: BP 100/59
--- NOTE | 2017-01-30 16:07 | PATHOLOGY ---
PATHOLOGY REPORT * * * * * * * * FINAL DIAGNOSIS: Segments of bone and soft tissue, right total knee arthroplasty: - Advanced degenerative arthritis. (JPM:; d/t: 01/30/17) REPORT ELECTRONICALLY SIGNED BY: Kavon Snowden M.D. DATE/TIME: 01/30/2017 16:07 * * * * * * * * GROSS PATHOLOGY: Received in formalin labeled Jorden-right knee tissue is a 9.0 x 9.0 x 3.5 cm aggregate of yellowish-white, irregular, segments of bone with attached yellow lobular adipose tissue and whitish pink, membranous tissue. The articular surfaces of the specimens are yellowish white and smooth with focal areas of erosion and focal eburnation. Sectioning through the specimen reveals a yellowish white hard trabeculated cut surface and an articular surface ranging in thickness from less than 0.1 cm up to 0.3 cm. Perishable Fruit Inspector sections of the specimen are submitted in cassette A1 following decalcification. (AKA; 01/29/2017) INITIAL CPT CODE(S): A; 91953, 27656 Professional services performed by [facility] [place] [address] Technical services performed by [facility] at [address] [place] [address] [address] [place] [address]. SPECIMEN(S) RECEIVED: A.Right knee tissue CLINICAL HISTORY: Right knee OA PATIENT: SUZANNE COON /AGE: 7 1945 (Age: 71) PATIENT #: [id number] ALT CASE #: SPECIMEN COLLECTION DATE: 01/27/2017 SPECIMEN RECEIVED DATE: 01/28/2017 [facility] - [address] [place] [address] - PHONE: [phone] * * * END OF REPORT * * *
[2017-01-31] MEDS ORDERED: CETIRIZINE HCL 10 MG TABLET. PO SCH (09:00)
--- NOTE | 2017-02-02 10:18 | PDOC3 ---
Discharge Summary Visit Information Date of Admission: Jan 27, 2017 Date of Discharge: Jan 30, 2017 Admitting Diagnosis: right knee osteoarthritis pain Final Diagnosis Problems Medical Problems: (1) Osteoarthritis of right knee Status: Acute Brief Hospital Course Allergies Allergies Coded Allergies Type Severity Reaction Last Updated Verified adhesive tape Allergy Intermediate Rash 01/27/17 Yes amoxicillin Allergy Intermediate 01/28/17 Yes Brief Hospital Course 71 year old who presented with right knee osteoarthritis, for elective right total knee arthroplasty. The patient underwent total knee arthroplasty under general anesthesia the day of admission. Perioperative antibiotics and DVT prophylaxis were used. Postoperatively physical therapy and case management were consulted. The patient progressed and is stable for discharge. Discharge Information Condition at Discharge: Stable Follow Up: Weeks (2) Disposition/Orders: D/C to Home w/ HH Scheduled Aspirin (Aspirin Ec) 325 MG PO BID (Reported) Cider Vinegar (Apple Cider Vinegar) 300 MG PO DAILY (Reported) Cyclobenzaprine Hcl (Cyclobenzaprine Hcl) 10 MG PO DAILY (Reported) Dexlansoprazole (Dexilant) 60 MG PO DAILY (Reported) Ferrous Sulfate (Ferrous Sulfate) 1 TAB PO DAILY (Reported) Levocetirizine Dihydrochloride (Levocetirizine Dihydrochloride) 1 TAB PO DAILY ( Reported) Loratadine (Loratadine) 10 MG PO DAILY (Reported) Meloxicam (Mobic) 15 MG PO DAILY (Reported) Metoprolol Succinate (Metoprolol Succinate) 75 MG PO DAILY (Reported) Multivits-Min/Fa/Lycopene/Lut (Centrum Silver Tablet) 1 EACH PO DAILY (Reported ) [place]-3 Fatty Acids (Fish Oil) 1,000 MG PO DAILY (Reported) Rosuvastatin Calcium (Crestor) 0.5 TAB PO QMWF (Reported) Spironolactone (Aldactone) 25 MG PO DAILY (Reported) Miscellaneous Medications Meclizine Hcl (Meclizine Hcl) 12.5 MG PO (Reported) Discontinued Medications Hydrocodone Bit/Acetaminophen (Hydrocodone-Apap 5-325 ) 1 TAB PO PRN Q6HRS PRN PRN PAIN (Reported) Tramadol Hcl (Tramadol Hcl) 50 MG PO Q6H PRN PRN PAIN (Reported) Patient Instructions Patient Instructions Patient Instructions Continue to WBAT with walker. Keep dressing dry and intact. F/U with [facility] in 10-14 days. Call for appointment. Physical therapy for TKA Continue DVT prophylaxis. DEVIN MAK Feb 02, 2017 10:18
== END 2017-01-30 15:45 | disposition home health service (06) | DRG 470 ==
LOC: OPSVCIP 10:04 → 4 SOUTHEST 17:30
PROVIDERS: ADMIT Orthopaedic Surgery; ATTEND Orthopaedic Surgery
PROC: 0SRC0J9 Replacement of Right Knee Joint with Synthetic Substitute, Cemented, Open Approach (ICD-10-PCS; principal; 2017-01-27 12:15)
DX: M17.11 Unilateral primary osteoarthritis, right knee (principal); K21.9 Gastro-esophageal reflux disease without esophagitis; Z82.3 Family history of stroke; Z82.49 Family history of ischemic heart disease and other diseases of the circulatory system; Z83.3 Family history of diabetes mellitus; Z88.1 Allergy status to other antibiotic agents; Z91.048 Other nonmedicinal substance allergy status
CPT/HCPCS: 36415; 73560; 85014; 85018; 85027; 86850; 86900; 86901; 88305; 88311; J0171; J1100; J1885; J2250; J2270; J2370; J2405; J2704; J2710; J2795; J3010; J3260; J3370; J3490; J7030; J7120; J8597; S0028; 97116; 97150; 97530; 97535; C1769

== ENCOUNTER → 2017-05-20 | Outpatient (CLI) | payer MEDICARE, BC ==
[~2017-05-20] MED LIST changes: +ASPI325T11 PO; +CALC-31 PO; -CALC-67 PO; -CLINDAMYCIN 600MG PREMIX 50 ML IV PRN; -DEXL60CA PO; +DEXL60CA2 PO; -FENTANYL PF 100 MCG/2 ML VIAL. IV PRN; +GADOBUTROL 7.5 MMOL/7.5 ML VIAL IV ONE; -HYDR-2666 PO; +HYDR-2758 PO; -HYDROCODONE/APAP 7.5/325MG TABLET. PO PRN; -HYDROMORPHONE 2 MG/ML VIAL. IV PRN; -LIDOCAINE 1% 1 ML SYRINGE. ID PRN; -MORPHINE SULFATE 5 MG, KETOROLAC TROMETHAMINE 30 MG, ROPIVacaine 0.5% PF 60 ML, EPINEPH... INT ART ONE; -ONDANSETRON PF 4 MG/2 ML VIAL. IV PRN; -PROCHLORPERAZINE 10 MG/2 ML VIAL. IV PRN; -TOBRAMYCIN POWDER 1.2 GM VIAL. ONE; -TRANEXAMIC ACID 1,000 MG in IV NS 50ML -- 1ST BAG INJ ONE; -TRANEXAMIC ACID 1,000 MG in IV NS 50ML -- 2ND BAG INJ ONE; -VANCOMYCIN 1 GM VIAL. ONE
--- NOTE | 2017-05-20 14:17 | KCIC ---
MRI of the lumbar spine without and with contrast 05/20/2017 CLINICAL HISTORY: Low back pain which radiates down the left leg. History of previous lumbar spine surgery in 2009. TECHNIQUE: Unenhanced T1-weighted and T2-weighted sagittal and axial and inversion recovery sagittal images of the lumbar spine were obtained. After the intravenous administration of 6 cc of Gadavist, enhanced T1-weighted sagittal and axial images of the lumbar spine were obtained. FINDINGS: Comparison is made to radiographs of the lumbar spine dated 07/25/2011. Moderate to severe S-shaped rotoscoliosis of the thoracolumbar spine is seen. The patient is status post discectomy and fusion using bone graft material at L3-4 and L4-5. The patient is post placement of interspinous process stabilizing devices at L3-4 and L4-5. Postsurgical changes are seen involving all of the disks of the lumbar spine. Degenerative signal changes are seen within the marrow surrounding these discs. Loss of height of the L2-3 and L5-S1 discs is noted. The conus medullaris is normal in position and signal characteristics. A 1.1 cm hemangioma is seen involving the L1 vertebral body. At the L1-2 disc space there is a mild generalized disc bulge. Degenerative changes are seen involving the facet joints bilaterally. These findings do not result in significant central spinal canal or neural foraminal stenosis. At the L2-3 disc spaces there is a mild generalized disc bulge. Superimposed on this disc bulge is a right paracentral focal disc protrusion. This measures 3 mm in AP diameter. Degenerative changes are seen involving the facet joints, right greater than left. There is mild ligamentum flavum hypertrophy bilaterally. These findings result in mild right-sided central spinal canal stenosis. Mild right neural foraminal stenosis is seen. The left neural foramen is patent. At the L3-4 level degenerative changes are seen involving the facet joints bilaterally. There is mild ligamentum flavum hypertrophy. These findings do not result in significant central spinal canal or neural foraminal stenosis. At the L4-5 level degenerative changes are seen involving the facet joints, left greater than right. There is mild ligamentum flavum hypertrophy. These findings do not result in significant central spinal canal or neural foraminal stenosis. At the L5-S1 disc space there is a mild to moderate generalized disc bulge. Superimposed on the disc bulge is a left paracentral focal disc protrusion. Degenerative changes are seen involving the facet joints, left greater than right. There is mild to moderate ligamentum flavum hypertrophy. This measures 4 mm in AP diameter. These findings when combined result in mild to moderate left greater than right central spinal canal stenosis. Moderate to severe left neural foraminal stenosis is noted. IMPRESSION: 1. Postsurgical changes are seen at L3-4 and L4-5 as outlined above. 2. The changes of degenerative disc disease are seen involving the lumbar spine. These findings result in mild right-sided central spinal canal stenosis at L2-3 and mild to moderate left greater than right central spinal canal stenosis at L5-S1. Mild right neural foraminal stenosis is seen at L2-3. Moderate to severe left neural foraminal stenosis is seen at L5-S1. Electronically signed by: Cyril Neff MD (05/20/2017 2:14 PM) [id number]
== END | disposition home or self-care (01) ==
LOC: KCIC MRI 10:36
PROVIDERS: ATTEND Orthopaedic Surgery
DX: M51.36 Other intervertebral disc degeneration, lumbar region (principal); M48.06 Spinal stenosis, lumbar region; M99.53 Intervertebral disc stenosis of neural canal of lumbar region
CPT/HCPCS: 72158; 82565; A9585

== ENCOUNTER → 2017-07-07 | Outpatient (CLI) | payer MEDICARE, BC ==
[~2017-07-07] MED LIST changes: -GADOBUTROL 7.5 MMOL/7.5 ML VIAL IV ONE; +IOHEXOL 180 MG/ML 10 ML VIAL. ONE; +MONT10TA9 PO; +MULT-650 PO; +OXYB5TAB7 PO; +TAMS0.4C2 PO; +methylPREDNISolone ACETATE 40 MG/ML VIAL. ONE; +methylPREDNISolone ACETATE 80 MG/ML VIAL. ONE
--- NOTE | 2017-07-07 19:35 | PAIN ---
DATE OF SERVICE: 07/07/2017 INITIAL CONSULTATION FOR PAIN CLINIC CHIEF COMPLAINT: Low back and left lower extremity pain. HISTORY OF PRESENT ILLNESS: This is a 72-year-old female who presents with history of pain in the low back, left lower extremity for about a year without any specific injury or accident, but she had a knee replacement on the right recently in January of this year, which seems to have exacerbated her back pain when she was going to her rehabilitation. The patient reports the back is worse after the knee replacement, although her knee is feeling better, and having difficulty walking secondary to more of the back pain now than the knee pain. The patient is still using a walker and a cane, has a walker with her today. The patient reports initially in August 2016 she hyperextend her knee and then body twisted and turned, to prevent hitting the floor, she hit side of her bed and has had back pain since that time. Now, it is much worse, has radiating pain into the left lower extremity, mostly in the posterior gluteus, posterior thigh, lateral thigh, posterior calf, and into the foot with some tingling and numbness there as well. The patient reports as constant, throbbing, radiating, intermittent in intensity, but always present. Reports it does not awaken her from sleep at night; however, she feels better sitting or lying down, worse with standing and walking. Reports it does affect her bowel or bladder control. She has a small amount of incontinence, which sounds that it could be stress incontinence as well, but has noticed is worse when her back pain is increased. No complete loss of function. The patient reports it does affect her ability to walk. She therefore again is using a walker. She has had previous physical therapy, trigger point injections, and SI injections in the past, which has been helpful. The patient reports no loss of motor function, but significant fatigability of the left lower extremity compared to the right when she is standing or walking. The patient reports disability rate of 0-10, 10 being the worst, 8 with family and home responsibilities, 6 with recreation and social activities, 7 with occupation, 10 with sexual behavior, 2 with self care, and 0 with life support activities. The patient did have an MRI scan of the lumbar spine dated 05/20/2017 showing post-surgical changes at L3-L4 and L4-L5, changes from degenerative disk disease involving lumbar spine with mild right-sided central spinal canal stenosis at L2-L3, mild to moderate left greater than right central spinal canal stenosis at L5-S1 and mild right neural foraminal stenosis at L2-L3 with moderate to severe left neural foraminal stenosis at L5-S1. PAST MEDICAL HISTORY: Significant for hypertension, arthritis, hearing loss with hearing aids, osteoporosis, peripheral neuropathy, tendinitis, gastroesophageal reflux. PREVIOUS SURGERY: Include right knee replacement on 01/27/2017, lumbar diskectomy with fusion in 2009, previous knee scopes, laparoscopic cholecystectomy, and 2 previous C-sections. CURRENT MEDICATIONS: Include Centrum Silver, Crestor, hydrocodone, metoprolol, montelukast, tamsulosin, oxybutynin, multivitamins, Aldactone, Mobic, loratadine, cyclobenzaprine, apple cider vinegar, meclizine, Crestor, levocetirizine, iron daily, baby aspirin, Dexilant, and omega 3 oils. ALLERGIES: The patient has no known drug allergies. FAMILY HISTORY: Significant for cancer and heart disease. SOCIAL HISTORY: The patient does not smoke, does not drink alcohol. Lives with her , is , has no children, living at home, lives locally ____ [place], and is retired. REVIEW OF SYSTEMS: Positive for those items mentioned in history of present illness. All systems reviewed and otherwise negative. It is complete, full and well documented on the patient's chart. PHYSICAL EXAMINATION: VITAL SIGNS: Today, the patient's blood pressure 112/60, pulse 55, respirations 18, temperature 98.2 degrees Fahrenheit, height is 5 feet 1-1/2 inches, weight is 149 pounds. GENERAL: The patient is awake, alert, oriented, appropriate, very pleasant demeanor. HEENT: Head shows normocephalic, atraumatic. Extraocular movements are intact and symmetrical. Oral cavity shows mucous membranes moist and pink. Dentition is intact. NECK: Shows anterior throat supple without palpable lymphadenopathy noted. Swallow reflex is symmetrical. CHEST: Shows normal on inspection. Breath sounds clear to auscultation bilaterally. HEART: Shows S1 and S2 clear. ABDOMEN: Soft, nontender, nondistended. No palpable organomegaly is noted. No rebound or guarding demonstrated. BACK: Shows spine grossly in midline. Normal appearing cervical lordotic curvature, thoracic kyphotic curvature, and some flattening of lumbar lordotic curvature with well-healed surgical scar noted. Lumbar paraspinous muscle shows symmetrical without atrophy or hypertrophy. The patient has good rotation and motion both laterally as well as extension and flexion of lumbar spine without significant pain reported. The patient's lower extremities show deep tendon reflexes 1+ in the patellar and tendo calcaneus tendons are equal. Motor exam is strong with 5/5 dorsiflexion, extension, quadriceps and hamstring flexion and equal bilaterally. Peripheral pulses are 1+, posterior tibial and dorsalis pedis pulses. No peripheral edema is noted. No clubbing, no cyanosis. Lower extremities are warm and dry to touch, equal in color and appearance. The patient is able to stand, and has difficulty trying to stand on her toes as she loses balance easily, but states it is not without the ability to do it. The patient is walking with a slight shuffling gait, appears to favor the left lower extremity to a mild extent, and she is using a walker to ambulate on her visit today. IMPRESSION: 1. This is a 72-year-old female with approximate 1 year history of increasing pain in low back, left lower extremity in a radicular fashion. 2. MRI scan of lumbar spine as noted. 3. Hypertension. 4. Arthritis. PLAN: Options were discussed with the patient including conservative medical management, physical therapy, interventional techniques, and she elected to proceed with interventional techniques. We discussed a lumbar epidural steroid injection using description as well as anatomical models to describe in the procedure. Risks were then discussed including, but not limited to bleeding, infection, possibility of epidural hematoma and subsequent neurologic compromise, dural punctures, headaches, spinal cord and/or nerve damage, side effects of steroid medications and poor results regarding pain control. The patient understands and wishes to proceed. The patient will return to clinic in approximately 2 weeks for followup, was counseled on return appointment, activity level, and side effects to be aware of. DIAGNOSIS: Lumbar radiculopathy with lumbar degenerative disk disease, post-lumbar laminectomy syndrome. PROCEDURES: Lumbar epidural steroid injection, translaminar approach at the L5-S1 level using C-arm fluoroscopic guidance under sterile prep and drape with local anesthetic. MEDICATIONS INJECTED: A total of 120 mg Depo-Medrol plus 10 mL of preservative-free normal saline and 2 mL of Isovue for contrast. CONDITION AT DISCHARGE: Stable. The patient tolerated procedure well, had no complications. ISIDORO SUN MD DR: NEHAL/maria de jesus JOB#: [id number] / [id number]
== END | disposition home or self-care (01) ==
LOC: PNCL 08:37
PROVIDERS: ATTEND Anesthesiology
DX: M51.16 Intervertebral disc disorders with radiculopathy, lumbar region (principal); M96.1 Postlaminectomy syndrome, not elsewhere classified; M19.90 Unspecified osteoarthritis, unspecified site; I10 Essential (primary) hypertension; H91.90 Unspecified hearing loss, unspecified ear; M81.0 Age-related osteoporosis without current pathological fracture; K21.9 Gastro-esophageal reflux disease without esophagitis; F32.9 Major depressive disorder, single episode, unspecified; Z86.69 Personal history of other diseases of the nervous system and sense organs; Z90.49 Acquired absence of other specified parts of digestive tract; Z98.51 Tubal ligation status; Z87.39 Personal history of other diseases of the musculoskeletal system and connective tissue; Z88.1 Allergy status to other antibiotic agents; Z91.048 Other nonmedicinal substance allergy status
CPT/HCPCS: 62323; J1030; J1040

== ENCOUNTER → 2017-07-22 | Outpatient (CLI) | payer MEDICARE, BC ==
[~2017-07-22] MED LIST changes: +METO-239 PO; -METO25TA9 PO; -METO50TA10 PO; +METO50TA29 PO
--- NOTE | 2017-07-22 10:45 | PAIN ---
DATE OF SERVICE: 07/22/2017 PROGRESS NOTE DIAGNOSES: Lumbar radiculopathy with lumbar degenerative disk disease and post-lumbar laminectomy syndrome. HISTORY OF PRESENT ILLNESS: The patient is a 72-year-old female who returns for followup status post lumbar epidural steroid injection times 1. The patient reports about 75% improvement initially, now down to about 40-50%. She was increasing her activity and reports that she feels she "overdid it," with increased activity and has had some of the pain returned, not as significant in the left lower extremity as it was, mostly in the back and hips, some on the right side as well, rates an 8 on scale 10 as its worst, 5 on average and 1 on a scale of 10 at least. The patient reports she is sleeping well at night. It does not awaken her from sleep. She feels much better with sitting or lying down. The patient reports the pain is aching, dull, tingling, radiating off and on, but not constant. The patient reports no new motor or sensory deficits, no new bowel or bladder incontinence or other complaints. PHYSICAL EXAMINATION: VITAL SIGNS: The patient's blood pressure is 146/75, pulse 90, respirations 18, temperature 98.2 degrees Fahrenheit, height is 5 feet 2 inches and weighs 145 pounds. GENERAL: The patient is awake, alert, oriented, appropriate, very pleasant demeanor. HEENT: Shows normocephalic, atraumatic. Extraocular movements are intact and symmetrical. Oral cavity shows mucous membranes moist and pink. Dentition is intact. NECK: Shows anterior throat supple, swallow reflex symmetrical. CHEST: Shows normal on inspection. Breath sounds are clear to auscultation bilaterally. HEART: Shows S1 and S2 clear. ABDOMEN: Soft, nontender, nondistended. No palpable organomegaly is noted. No rebound or guarding demonstrated. BACK: Shows spine grossly midline. Lumbar paraspinous musculature shows symmetrical with inspection, also with well-healed surgical scar noted. With palpation, lumbar paraspinous muscle shows some moderate tenderness in the low lumbar distribution, but only diffusely and only very mildly without radiation. No tenderness over the sacrum or sacroiliac regions. The patient shows good rotation and motion of the lumbar spine without difficulty. EXTREMITIES: Lower extremities show deep tendon reflexes 1+ in the patellar and tendo calcaneus tendons. Motor exam is strong with 5/5 dorsiflexion, extension and about 4/5 on the right quadriceps and hamstring, but 5/5 on the left. Peripheral pulses are 1+ posterior tibial. No peripheral edema is noted. PLAN: Options were discussed with the patient. The patient's old chart was reviewed as her current medication regimen and updated. Current review of systems updated today as well. We will proceed with a second in the series of lumbar epidural steroid injection with fluoroscopic guidance. Risks were again discussed including, but not limited to bleeding, infection, possibility of epidural hematoma, subsequent neurological compromise, dural punctures, headaches, spinal cord and/or nerve damage, side effects of steroid medication and poor results regarding pain control. The patient understands and wished to proceed. The patient will return to clinic in approximately 2 weeks for followup, was counseled on return appointment, activity level and side effects to be aware of. DIAGNOSES: Lumbar radiculopathy with lumbar degenerative disk disease and post-lumbar laminectomy syndrome. PROCEDURE: Lumbar epidural steroid injection in translaminar approach at the L5-S1 level using C-arm fluoroscopic guidance under sterile prep and drape using local anesthetic. MEDICATIONS INJECTED: 120 mg of Depo-Medrol plus 10 mL preservative-free normal saline and 2 mL of Isovue for contrast. CONDITION AT DISCHARGE: Stable. The patient tolerated the procedure well and had no complications. ISIDORO SUN MD DR: NEHAL/maria de jesus JOB#: [id number] / [id number]
== END | disposition home or self-care (01) ==
LOC: PNCL 08:34
PROVIDERS: ATTEND Anesthesiology
DX: M51.16 Intervertebral disc disorders with radiculopathy, lumbar region (principal); M96.1 Postlaminectomy syndrome, not elsewhere classified; I10 Essential (primary) hypertension; E78.00 Pure hypercholesterolemia, unspecified; G47.30 Sleep apnea, unspecified; Z90.49 Acquired absence of other specified parts of digestive tract; K21.9 Gastro-esophageal reflux disease without esophagitis; M19.91 Primary osteoarthritis, unspecified site; F41.9 Anxiety disorder, unspecified; Z86.69 Personal history of other diseases of the nervous system and sense organs; Z98.51 Tubal ligation status; Z88.1 Allergy status to other antibiotic agents; Z87.39 Personal history of other diseases of the musculoskeletal system and connective tissue; Z91.048 Other nonmedicinal substance allergy status
CPT/HCPCS: 62323; J1030; J1040

== ENCOUNTER → 2017-12-15 | Outpatient (CLI) | payer MEDICARE, BC | END | disposition home or self-care (01) | LOC: KCIC CT 09:19 | DX: M21.70 Unequal limb length (acquired), unspecified site (principal) | CPT/HCPCS: 77073 ==

== ENCOUNTER → 2018-06-02 | Outpatient (CLI) | payer MEDICARE, BC ==
[~2018-06-02] MED LIST changes: -ASPI325T11 PO; -CALC-31 PO; -CIDE300T PO; -CRESTOR20 MG PO; -CRESTOR5 MG PO; -CYCL10TA2 PO; -DEXL60CA2 PO; -FERR-26 PO; -HYDR-2758 PO; +IOHEXOL 180 MG/ML 10 ML VIAL.; -IOHEXOL 180 MG/ML 10 ML VIAL. ONE; -LEVO5TAB2 PO; +LIDOCAINE 1% PF 2 ML VIAL.; -LORA10TA3 PO; -MECL12.52 PO; -MELO15TA6 PO; -METO-239 PO; -METO50TA29 PO; -MONT10TA9 PO; -MULT-650 PO; -MULT-658 PO; -OMEG500C3 PO; -OXYB5TAB7 PO; -SPIR25TA PO; -TAMS0.4C2 PO; -TRAM50TA PO; +methylPREDNISolone ACETATE 40 MG/ML VIAL.; -methylPREDNISolone ACETATE 40 MG/ML VIAL. ONE; +methylPREDNISolone ACETATE 80 MG/ML VIAL.; -methylPREDNISolone ACETATE 80 MG/ML VIAL. ONE
== END ==
LOC: PNCL 10:53
DX: M51.16 Intervertebral disc disorders with radiculopathy, lumbar region (principal); M96.1 Postlaminectomy syndrome, not elsewhere classified; E78.00 Pure hypercholesterolemia, unspecified; I10 Essential (primary) hypertension; G47.30 Sleep apnea, unspecified; K21.9 Gastro-esophageal reflux disease without esophagitis; M19.90 Unspecified osteoarthritis, unspecified site; F41.9 Anxiety disorder, unspecified; M41.9 Scoliosis, unspecified; Z96.651 Presence of right artificial knee joint; Z90.49 Acquired absence of other specified parts of digestive tract; Z98.890 Other specified postprocedural states; Z79.82 Long term (current) use of aspirin; Z79.899 Other long term (current) drug therapy; Z91.048 Other nonmedicinal substance allergy status; Z88.1 Allergy status to other antibiotic agents; Z98.51 Tubal ligation status; Z82.5 Family history of asthma and other chronic lower respiratory diseases; Z82.49 Family history of ischemic heart disease and other diseases of the circulatory system; Z80.0 Family history of malignant neoplasm of digestive organs; Z80.49 Family history of malignant neoplasm of other genital organs
CPT/HCPCS: 62323; J1030; J1040; Q9965

== ENCOUNTER → 2018-06-16 | Outpatient (CLI) | payer MEDICARE, BC ==
[~2018-06-16] MED LIST changes: -LIDOCAINE 1% PF 2 ML VIAL.; +LIDOCAINE 2% PF 2ML VIAL.
== END | disposition home or self-care (01) ==
LOC: PNCL 10:15
DX: M51.16 Intervertebral disc disorders with radiculopathy, lumbar region (principal); M96.1 Postlaminectomy syndrome, not elsewhere classified; E78.00 Pure hypercholesterolemia, unspecified; I10 Essential (primary) hypertension; G47.30 Sleep apnea, unspecified; Z90.49 Acquired absence of other specified parts of digestive tract; K21.9 Gastro-esophageal reflux disease without esophagitis; Z98.51 Tubal ligation status; M19.90 Unspecified osteoarthritis, unspecified site; F41.9 Anxiety disorder, unspecified; Z88.1 Allergy status to other antibiotic agents; Z98.890 Other specified postprocedural states; Z91.048 Other nonmedicinal substance allergy status; Z82.5 Family history of asthma and other chronic lower respiratory diseases; Z80.0 Family history of malignant neoplasm of digestive organs; Z80.59 Family history of malignant neoplasm of other urinary tract organ; Z82.49 Family history of ischemic heart disease and other diseases of the circulatory system; Z83.6 Family history of other diseases of the respiratory system
CPT/HCPCS: 62323; J1030; J1040; J2001; Q9965

== ENCOUNTER → 2019-04-06 | Outpatient (CLI) | payer MEDICARE, BC ==
[~2019-04-06] MED LIST changes: +ALPR0.254 PO; +ASPI325T11 PO; +CALC-31 PO; +CIDE300T PO; +CRESTOR20 MG PO; +CRESTOR5 MG PO; +CYCL10TA2 PO; +DEXL60CA2 PO; +FERR325T14 PO; +GABA-585 PO; +HYDR-2761 PO; -IOHEXOL 180 MG/ML 10 ML VIAL.; +IOHEXOL 180 MG/ML 10 ML VIAL. ONE; +LEVO5TAB2 PO; -LIDOCAINE 2% PF 2ML VIAL.; +LORA10TA3 PO; +MECL12.52 PO; +MELO15TA6 PO; +METO-239 PO; +METO-247 PO; +METO50TA29 PO; +MONT10TA9 PO; +MULT-650 PO; +MULT-658 PO; +NORT10CA PO; +OMEG500C3 PO; +OXYB5TAB7 PO; +SPIR25TA PO; +TAMS0.4C2 PO; +TRAM50TA PO; +TRIA10.8 NS; -methylPREDNISolone ACETATE 40 MG/ML VIAL.; +methylPREDNISolone ACETATE 40 MG/ML VIAL. ONE; -methylPREDNISolone ACETATE 80 MG/ML VIAL.; +methylPREDNISolone ACETATE 80 MG/ML VIAL. ONE
--- NOTE | 2019-04-07 04:35 | PAIN ---
DATE OF SERVICE: 04/06/2019 PROGRESS NOTE FOR PAIN CLINIC DIAGNOSIS: Lumbar radiculopathy with lumbar degenerative disk disease and lumbar post-laminectomy syndrome. HISTORY OF PRESENT ILLNESS: This is a 73-year-old female who returns for followup status post lumbar epidural steroid injections, most recently seen in 06/2018. The patient did very well, reports that she had good improvement in the low back and left lower extremity at that time. The patient reports the pain is returning now over the past several months with activity, although she has been doing some stretching and strengthening exercises on her own at home. She is still having some significant pain in the low back and left lower extremity, mostly in the posterior gluteus, posterior thigh into the posterior calf at times. The patient reports ice helps with the back as does stretching and strengthening exercises, but still having some significant pain with walking and standing. She is using a walker and has that with her today on her visit as well. The patient reports no loss of motor function, but significant fatigability of the left lower extremity with ambulation. The patient describes the pain as a radiating pain, it is aching and sharp, dull, tight across the back into the posterior gluteus, posterior thigh and calf. She rates as a 6 on a scale of 10 at its worst over the past week, 4 on average and is a 1 at its least and is a 4 today. The patient reports otherwise no new changes. PHYSICAL EXAMINATION: VITAL SIGNS: The patient's blood pressure 108/63, pulse 85, respirations 18, temperature 98.1 degrees Fahrenheit, height is 5 feet 1 inch and weight is 153 pounds. GENERAL: The patient is awake, alert, oriented, appropriate, very pleasant demeanor. HEENT: Head shows normocephalic and atraumatic. Extraocular movements are intact and symmetrical. Oral cavity, mucous membranes are moist and pink. Dentition is intact. NECK: Shows anterior throat is supple without palpable lymphadenopathy noted. Swallow reflex is symmetrical. CHEST: Shows normal with inspection. Breath sounds are clear to auscultation bilaterally. HEART: Shows S1 and S2 clear. No murmurs are auscultated. ABDOMEN: Soft, nontender and nondistended. No palpable organomegaly is noted. No rebound or guarding demonstrated. BACK: Shows spine grossly in the midline. Normal appearing thoracic kyphosis, some minor flattening of the lumbar lordotic curvature with well-healed surgical scarring noted. Lumbar paraspinous muscle shows symmetrical on inspection. On palpation shows some moderate tenderness diffusely bilaterally, only diffusely without radiation. EXTREMITIES: The patient's lower extremities show deep tendon reflexes, 1+ in the patellar and tendo calcaneus tendons. Motor exam is strong with 5/5 dorsiflexion, extension approximately 4/5 but equal quadriceps and hamstring flexion bilaterally. Peripheral pulses are 1+ posterior tibia. No peripheral edema is noted. Options were discussed with the patient. The patient's old chart was reviewed as was her current medication regimen updated. Current review of systems updated today as well. We will proceed with a lumbar epidural steroid injection today with fluoroscopic guidance. Risks were again discussed including, but not limited to bleeding, infection, possibility of epidural hematoma, subsequent neurological compromise, dural puncture, headaches, spinal cord and/or nerve damage, side effects of steroid medication and poor results regarding pain control. The patient understands and wished to proceed. The patient will return to the clinic in approximately 2 weeks for followup, was counseled as to return appointment, activity level and side effects to be aware of. DIAGNOSIS: Lumbar radiculopathy with lumbar degenerative disk disease, post lumbar laminectomy syndrome. PROCEDURE: Lumbar epidural steroid injection, translaminar approach at the L5-S1 level using C-arm fluoroscopic guidance under sterile prep and drape using local anesthetic. MEDICATION INJECTED: A total of 120 mg Depo-Medrol plus 10 mL of preservative-free normal saline and 2 mL of Isovue for contrast. CONDITION ON DISCHARGE: Stable. The patient tolerated the procedure well and had no complications. ISIDORO SUN MD DR: NEHAL/maria de jesus JOB#: [id number] / [id number]
== END ==
LOC: PNCL 11:55
PROVIDERS: ATTEND Anesthesiology
DX: M51.16 Intervertebral disc disorders with radiculopathy, lumbar region (principal); M54.5 Low back pain
CPT/HCPCS: 62323; J1030; J1040; Q9965

== ENCOUNTER → 2019-04-28 | Outpatient (CLI) | payer MEDICARE, BC ==
[~2019-04-28] MED LIST changes: +MONT10TA49 PO; -MONT10TA9 PO
--- NOTE | 2019-04-28 12:22 | PAIN ---
DATE OF SERVICE: 04/28/2019 DIAGNOSES: Lumbar radiculopathy with lumbar degenerative disk disease and lumbar post-laminectomy syndrome. HISTORY OF PRESENT ILLNESS: The patient is a 73-year-old female who returns for followup status post lumbar epidural steroid injection x 1. The patient reports about 50% improvement in the low back, but pain in left lower extremity. The patient reports still some pain in the low back, posterior gluteus, posterior thigh, and posterior calf. Worse with walking, standing, changing positions. The patient reports no new motor or sensory deficits, no new bowel or bladder incontinence. There is still significant pain in the low back and left leg. The patient reports it is aching, sharp, alternating with tight and stabbing pain, radiating. Rates as a 6 on a scale 10 at its worst over the past week, 3 on average, 1 at its least and is a 3 today. The patient reports no new motor or sensory deficits. The patient reports initially she has increased her distance walking, doing work activities, household activities at home, especially standing, preparing meals much with greater comfort and ease. 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 PHYSICAL EXAMINATION: VITAL SIGNS: The patient's blood pressure is 112/65, pulse 91, respirations 16, temperature 98.4 degrees Fahrenheit. Weight 148 pounds. GENERAL: The patient is awake, alert, oriented, appropriate, very pleasant demeanor. HEENT: Head shows normocephalic, atraumatic. Extraocular movements are intact and symmetrical. Oral cavity: Mucous membranes moist and pink. Dentition is intact. NECK: Shows anterior throat supple without palpable lymphadenopathy noted. Swallow reflex symmetrical. CHEST: Shows normal on inspection. Breath sounds clear to auscultation bilaterally. HEART: Shows S1, S2 clear. No murmurs auscultated. ABDOMEN: Soft, nontender, nondistended. No palpable organomegaly is noted. No rebound or guarding demonstrated. BACK: Shows spine grossly in the midline. Normal appearing thoracic kyphosis and minor flattening of lumbar lordotic curvature. Lumbar paraspinous muscle shows symmetrical on inspection. On palpation shows some moderate tenderness, but without specific radiation or atrophy, hypertrophy or asymmetry. The patient has good rotational motion of lumbar spine, both laterally as well as extension and flexion. EXTREMITIES: The patient's lower extremities show deep tendon reflexes 1+ in the patellar and tendo-calcaneus tendons. Motor exam is strong with dorsiflexion, extension, quadriceps and hamstring flexion rated at 5/5 and equal in the ankles and 4/5 and equal in quadriceps and hamstrings. Peripheral pulses are 1+ posterior tibia. No peripheral edema is noted bilaterally. Options were discussed with the patient. The patient's old chart was reviewed as was her current medication regimen updated. Current review of systems updated today as well. We will proceed with a lumbar epidural steroid injection today with fluoroscopic guidance. Risks were again discussed including, but not limited to bleeding, infection, possibility of epidural hematoma, subsequent neurologic compromise, dural puncture, headaches, spinal cord and/or nerve damage, side effects of steroid medication and poor results regarding pain control. The patient understands and wished to proceed. The patient will return to clinic in approximately 2 weeks for followup, was counseled as to return appointment, activity level and side effects to be aware of. DIAGNOSES: Lumbar radiculopathy with lumbar degenerative disk disease and lumbar post-laminectomy syndrome. PROCEDURE: Lumbar epidural steroid injection, translaminar approach L5-S1 level using C-arm fluoroscopic guidance under sterile prep and drape using local anesthetic. MEDICATION INJECTED: A total of 120 mg Depo-Medrol plus 10 mL of preservative-free normal saline and 2 mL of contrast. CONDITION AT DISCHARGE: Stable. The patient tolerated procedure well, had no complications. ISIDORO SUN MD DR: NEHAL/nts JOB#: [id number] / [id number]
== END ==
LOC: PNCL 11:12
PROVIDERS: ATTEND Anesthesiology
DX: M51.16 Intervertebral disc disorders with radiculopathy, lumbar region (principal); M96.1 Postlaminectomy syndrome, not elsewhere classified
CPT/HCPCS: 62323; J1030; J1040; Q9965

== ENCOUNTER → 2019-05-18 | Outpatient (CLI) | payer MEDICARE, BC ==
--- NOTE | 2019-05-18 13:01 | PAIN ---
DATE OF SERVICE: 05/18/2019 PROGRESS NOTE FOR PAIN CLINIC DIAGNOSES: Lumbar radiculopathy with lumbar degenerative disk disease and post-lumbar laminectomy syndrome. HISTORY OF PRESENT ILLNESS: The patient is a 74-year-old female who returns for followup status post lumbar epidural steroid injection x 2. The patient reports about 40% improvement overall in her low back and left lower extremity. The patient reports still significant pain with walking, standing, change in positions but she is on her feet for too long, more than about half an hour. The patient reports the pain is a 5 on a scale of 10 at its worst over the past week, 3 on average and 1 at its least and is a 3 today. The patient reports no new motor or sensory deficits and no new bowel or bladder incontinence or other complaints. Describes the pain is aching and dull, across the low back, radiating to the posterior gluteus, posterior thigh, posterior calf, becoming constant with weightbearing, standing and walking. The patient is using a walker and has it with her today. Reports it does not awaken her from sleep generally and she feels better with sitting or lying down. PHYSICAL EXAMINATION: VITAL SIGNS: The patient's blood pressure 109/76, pulse 81, respirations are 18 and temperature is 98.4 degrees Fahrenheit. Weight is 149 pounds. GENERAL: The patient is awake, alert, oriented, appropriate and very pleasant demeanor. HEENT: Head shows normocephalic and atraumatic. Extraocular movements are intact and symmetrical. Oral cavity: Mucous membranes moist and pink. Dentition is intact. NECK: Shows anterior throat supple without palpable lymphadenopathy noted. Swallow reflex symmetrical. CHEST: Shows normal with inspection. Breath sounds clear to auscultation bilaterally. HEART: Shows S1 and S2 clear. No murmurs auscultated. ABDOMEN: Soft, nontender and nondistended. No palpable organomegaly is noted. No rebound or guarding demonstrated. BACK: Shows spine grossly in the midline. Normal appearing thoracic kyphosis and lumbar lordotic curvature. Lumbar paraspinous muscle shows symmetrical on inspection with some moderate tenderness with palpation in the bilateral paraspinous musculature, well-healed surgical scars again noted. EXTREMITIES: Lower extremities show deep tendon reflexes 1+ in the patella and tendo-calcaneus tendons. Motor exam is strong with 5/5 dorsiflexion, extension, quadriceps and hamstring flexion are symmetrical. Peripheral pulses are 1+ posterior tibial. No peripheral edema is noted bilaterally. Options were discussed with the patient. The patient's old chart was reviewed as well as her current medication regimen updated. Current review of systems updated today as well. We will proceed with a third in the series of lumbar epidural steroid injection today with fluoroscopic guidance. Risks were again discussed including, but not limited to bleeding, infection, possibility of epidural hematoma, subsequent neurologic compromise, dural puncture, headaches, spinal cord and/or nerve damage, side effects of steroid medication and poor results regarding pain control. The patient understands and wished to proceed. The patient will return to the clinic in approximately 2 weeks for followup, was counseled as to return appointment, activity level and side effects to be aware of. DIAGNOSES: Lumbar radiculopathy with lumbar degenerative disk disease and lumbar post-laminectomy syndrome. PROCEDURE: Lumbar epidural steroid injection, translaminar approach, L5-S1 level using C-arm fluoroscopic guidance under sterile prep and drape using local anesthetic. MEDICATION INJECTED: A total of 120 mg Depo-Medrol plus 10 mL of preservative-free normal saline and 2 mL of contrast. CONDITION AT DISCHARGE: Stable. The patient tolerated the procedure well and had no complications. IISDORO SUN MD DR: NEHAL/nts JOB#: [id number] / [id number]
== END ==
LOC: PNCL 09:10
PROVIDERS: ATTEND Anesthesiology
DX: M51.16 Intervertebral disc disorders with radiculopathy, lumbar region (principal); M96.1 Postlaminectomy syndrome, not elsewhere classified
CPT/HCPCS: 62323; J1030; J1040; Q9965